=== PATIENT | female | born 1985 | race American Indian/Alaskan Native ===

== ENCOUNTER 2016-06-05 17:52 | Outpatient (CLI) | payer MEDICAID ==
[2016-06-05] MEDS ORDERED: LACTATED RINGERS 500 ML IV ONE (18:08)
[2016-06-05 18:10] VITALS: BP 115/67
[2016-06-05] MEDS ORDERED: TYLENOL PO ONE ×2 (18:23→18:45)
[2016-06-05] MEDS ORDERED: TYLENOL ONE (18:35)
[2016-06-05 18:59] LABS: Bilirubin,Urine NEG (Negative); Blood,Urine SM (Negative); Ketones,Urine NEG (Negative); Leukocyte Esterase,Urine TR (Negative); Nitrite,Urine NEG (Negative); Protein,Urine <15 mg/dL mg/dL (Negative); Urobilinogen,Urine < 2.0 mg/dL (<2.0)
[2016-06-05] MEDS ORDERED: LACTATED RINGERS 1,000 ML IV SCH (19:00)
== END 2016-06-05 19:57 | disposition home or self-care (01) ==
LOC: TRG 17:52
PROVIDERS: ATTEND Obstetrics & Gynecology
DX: O47.03 False labor before 37 completed weeks of gestation, third trimester (principal); Z3A.33 33 weeks gestation of pregnancy
CPT/HCPCS: 81001; 96360; J7120

== ENCOUNTER 2016-07-25 08:02 | Inpatient (IN) | payer MEDICAID ==
[2016-07-25] MEDS ORDERED: XYLOCAINE 2% INFILTRATI ONE (08:30)
--- NOTE | 2016-07-25 08:43 | History and Physical Report ---
History of Present Illness Date of examination: 07/25/16 Date of admission: 07/25/16 08:02 History of present illness: Patient presented to labor and delivery with complaints of regular contractions and on initial exam by RN was 9 cm dilated the patient was admitted to labor and delivery Menstrual History Regularity: irregular Menses every: 45 days Duration: 5 LMP: 10/16/2015 LMP reliability: month known LMP character: normal test type: urine test Date: 12/24/2015 BC at conception: none Planned ? yes EDC Calculations LMP: 07/22/2016 EDC Confirmation: 07/22/2016 Past History : 3 2 Living Children: 2 Para: 2 # 1 Delivery date: 02/20/2008 Weeks Gestation: 39 labor: no Delivery type: Anesthesia type: epidural Delivery location: [facility] Infant Sex: Male weight: 7-5 # 2 Delivery date: 08/04/2013 Weeks Gestation: 40 labor: no Delivery type: Anesthesia type: none Delivery location: [facility] Infant Sex: male weight: 6.75 Comments: . Past Medical History Abnormal PAP: negative KERLINE Exposure: negative Infertility: negative Uterine Anomaly: negative Uterine Surgery (not C/S): negative Other Gynecologic Problems: negative Social Hx: Patient is single Infection History Hx of STD: none HIV Risk Eval: low risk Hepatitis B Risk Eval: low risk Personal hx. of genital herpes: no Partner hx. of genital herpes: no Rash, Viral, or Febrile illness since last LMP? no Varicella/Chicken Pox Status: Immunized TB Risk: no Genetic History Congenital Heart Defect: Mom: no Dad: no Gucci Disease: Mom: no Dad: no Thalassemia Mom: no Dad: no Neural Tube Defect Mom: no Dad: no Down's Syndrome Mom: no Dad: no Fred-Sachs Mom: no Dad: no Sickle Cell Disease/Trait Mom: no Dad: no Hemophilia Mom: no Dad: no Muscular Dystrophy Mom: no Dad: no Cystic Fibrosis Mom: no Dad: no [place] Chorea Mom: no Dad: no Mental Retardation Mom: no Dad: no Fragile X Mom: no Dad: no Other Genetic/Chromosomal Disorder Mom: no Dad: no Child w/other defect Mom: no Dad: no Enviromental Exposures Xray Exposure: no Medication, drug, or alcohol use since LMP: no Chemical/Other Exposure: no Exposure to Cat Liter: no Hx of Parvovirus (Fifth Disease): no Occupational Exposure to Children: none Current Allergies: No known allergies Past History Past Medical History: no pertinent history Past Surgical History: no surgical history - Obstetrical History Expected Date of Delivery: 07/22/16 Actual Gestation: 40 Week(s) 3 Day(s) : 3 Para: 2 Hx # Term Pregnancies: 2 Number of Pregnancies: 0 Spontaneous Abortions: 0 Induced : 0 Number of Living Children: 2 Medications and Allergies Allergies Allergy/AdvReac Type Severity Reaction Status Date / Time No Known Allergies Allergy Verified 07/29/13 00:32 Home Medications Medication Instructions Recorded Confirmed Last Taken Type Pnv with Ca,No.72/Iron/FA 1 tab PO DAILY 08/04/13 08/04/13 08/03/13 22:00 History [ Plus Tablet] Ibuprofen [Motrin 600 MG tab] 800 mg PO Q6H PRN #30 tablet 08/05/13 Unknown Rx Lidocaine/Prilocaine [Emla Cream] 30 gm TP ONCE #1 cream..g. 08/05/13 Unknown Rx Active Meds: Active Medications Ephedrine Sulfate (Ephedrine Sulfate) 10 mg IV Q2M PRN PRN Reason: Hypotension Stop: 07/25/16 08:18 Lactated Ringer's (Lactated Ringers) 1,000 mls @ 125 mls/hr IV DIRECT FLOWER Oxytocin/Sodium Chloride (Pitocin/Ns 20 Unit/1000ml Drip) 20 units in 1,000 mls @ 125 mls/hr IV DIRECT FLOWER Mineral Oil (Mineral Oil) 30 ml PO QHS PRN PRN Reason: Constipation Promethazine HCl (Phenergan) 25 mg PO Q6H PRN PRN Reason: Nausea And Vomiting Terbutaline Sulfate (Brethine) 0.25 mg SUB-Q ONCE PRN PRN Reason: Hyperstimulation/Hypertonicity Stop: 07/25/16 08:14 Terbutaline Sulfate (Brethine) 0.25 mg IVP ONCE PRN PRN Reason: Hyperstimulation/Hypertonicity Stop: 07/25/16 08:14 - Vital Signs Vital signs: Vital Signs Pulse BP 101 H 128/98 07/25/16 08:05 07/25/16 08:05 Temp Pulse Resp BP Pulse Ox 101 H 128/98 07/25/16 08:05 07/25/16 08:05 - Physical Exam Breasts: Positive: deferred Cardiovascular: Regular rate Lungs: Positive: Normal air movement Abdomen: Positive: normal appearance, soft Genitourinary (Female): Positive: normal external genitalia Vagina: Positive: normal moisture Uterus: Positive: enlarged Anus/Rectum: Positive: normal perianal skin - Obstetrical FHR: category 2 Uterine Contraction Monitor Mode: External Uterine Contraction Pattern: Regular Results Result Diagrams: 07/25/16 21:10 All other labs normal. Assessment and Plan - Patient Problems (1) Active labor at term Current Visit: No Status: Acute Plan to address problem: Patient presented in advanced dilatation will move to delivery per normal labor and deliver protocol
--- NOTE | 2016-07-25 08:52 | Procedure Note ---
OB Delivery Note - Delivery Date of Delivery: 07/25/16 Surgeon: WILI MEDINA Estimated blood loss: 300cc - Vaginal Delivery position: OA Intrapartum events: meconium, precipitous labor- <3hr Delivery induction: none Delivery monitor: external FHT, external uterine Route of delivery: Delivery placenta: spontaneous Episiotomy: none Delivery laceration: none Anesthesia: none Delivery comments: She presented to 9 cm dilated and quickly delivered a female infant. Delivery complicated by meconium fluid. - A at 1 minute: 8 at 5 minutes: 9 Infant Gender: Female
[2016-07-25] MEDS ORDERED: ePHEDrine SULFATE IV PRN (09:00)
[2016-07-25] MEDS ORDERED: STADOL IV PRN (09:00)
[2016-07-25] MEDS ORDERED: BRETHINE IVP PRN (09:00)
[2016-07-25] MEDS ORDERED: PHENERGAN PO PRN ×2 (09:00→10:19)
[2016-07-25] MEDS ORDERED: MINERAL OIL PO PRN (09:00)
[2016-07-25] MEDS ORDERED: PITOCin/NS 20 UNIT/1000ML DRIP 20 UNITS/1,000 ML BAG IV SCH (09:00)
[2016-07-25] MEDS ORDERED: LACTATED RINGERS 1,000 ML IV SCH (09:00)
[2016-07-25] MEDS ORDERED: BRETHINE SUB-Q PRN (09:00)
[2016-07-25 09:27] LABS: Hematocrit 38.7 % (30.3-42.9); Hemoglobin 13.4 gm/dl (10.1-14.3); Mean Corpuscular HGB Conc 35 % (30-34); Mean Corpuscular Hemoglobin 34 pg (28-32); Mean Corpuscular Volume 98 fl (79-97); Platelet Count 184 K/mm3 (140-440); Red Blood Count 3.94 M/mm3 (3.65-5.03); Red Cell Distribution Width 14.4 % (13.2-15.2); White Blood Count 7.1 K/mm3 (4.5-11.0)
[2016-07-25] MEDS ORDERED: MILK OF MAGNESIA PO PRN (10:19)
[2016-07-25] MEDS ORDERED: TUCKS PAD TP PRN (10:19)
[2016-07-25] MEDS ORDERED: DULCOLAX PR PRN (10:19)
[2016-07-25] MEDS ORDERED: TYLENOL PO PRN (10:19)
[2016-07-25] MEDS ORDERED: PRENATAL VITAMIN PO SCH (10:19)
[2016-07-25] MEDS ORDERED: BENADRYL PO PRN (10:19)
[2016-07-25] MEDS ORDERED: SODIUM CHLORIDE FLUSH SYRINGE 10 ML IV NR (10:19)
[2016-07-25] MEDS ORDERED: LANSINOH TP PRN (10:19)
[2016-07-25] MEDS: MOTRIN PO SCH ×3 (11:00→23:14)
[2016-07-25] MEDS: NORCO 5/325 PO PRN (12:00)
[2016-07-25] MEDS: COLACE PO SCH ×2 (16:00→23:14)
[2016-07-25 21:58] LABS: Hematocrit 35.2 % (30.3-42.9); Hemoglobin 12.3 gm/dl (10.1-14.3)
[2016-07-26] MEDS: MOTRIN PO SCH ×3 (04:10→18:14)
[2016-07-26] MEDS: NORCO 5/325 PO PRN (04:11)
[2016-07-26] MEDS: COLACE PO SCH ×2 (12:33→22:31)
--- NOTE | 2016-07-26 14:58 | Progress Note ---
Assessment and Plan - Patient Problems (1) Vaginal delivery Onset Date: ~07/25/16 Current Visit: No Status: Acute Subjective - Subjective Date of service: 07/26/16 Principal diagnosis: vag del Patient reports: appetite normal, voiding normally, pain well controlled, ambulating normally Abrams: doing well Objective - Vital Signs Latest vital signs: Vital Signs Temp Pulse Pulse Resp BP 07/26/16 07:34 98.0 F 74 16 112/72 07/26/16 00:25 98.6 F 70 18 109/65 07/25/16 19:50 98.5 F 78 22 115/66 07/25/16 16:10 98.2 F 83 20 131/78 Intake and Output 07/25/16 07/26/16 07/26/16 22:59 06:59 14:59 Intake Total 360 580 480 Output Total 300 Balance 60 580 480 Intake: Oral 360 480 Intake, Free Water 580 Output: Urine 300 Void 300 Other: Total, Intake Amount 120 240 Total, Output Amount 300 # Voids Void 3 1 2 - Exam Breasts: Present: deferred Lungs: Present: Normal air movement Abdomen: Present: normal appearance, soft Uterus: Present: firm Extremities: Present: normal
[2016-07-27] MEDS: MOTRIN PO SCH ×2 (00:06→05:48)
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
[2016-07-27 14:10] VITALS: BP 116/68
== END 2016-07-27 13:15 | disposition home or self-care (01) | DRG 775 ==
LOC: LD 08:02 → OB 10:00
PROVIDERS: ADMIT Obstetrics & Gynecology; ATTEND Obstetrics & Gynecology
PROC: 10E0XZZ Delivery of Products of Conception, External Approach (ICD-10-PCS; principal; 2016-07-25)
DX: O62.3 Precipitate labor (principal); O77.0 Labor and delivery complicated by meconium in amniotic fluid; Z3A.40 40 weeks gestation of pregnancy; Z37.0 Single live birth
CPT/HCPCS: 36415; 85014; 85018; 85027; 86850; 86900; 86901; 99211; G0463; J0595; J2590

== ENCOUNTER 2016-08-11 20:11 | Emergency (ER) | payer OTHER, MEDICAID ==
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
[2016-08-12 05:18] VITALS: BP 132/78
== END 2016-08-12 00:15 | disposition home or self-care (01) ==
LOC: ED 20:11
DX: S39.012A Strain of muscle, fascia and tendon of lower back, initial encounter (principal); V89.2XXA Person injured in unspecified motor-vehicle accident, traffic, initial encounter; Y93.9 Activity, unspecified; Y99.9 Unspecified external cause status; Y92.410 Unspecified street and highway as the place of occurrence of the external cause
CPT/HCPCS: 71020; 72100